=== PATIENT | female | born 1965 | race Caucasian/White ===

== ENCOUNTER 2017-02-05 07:11 | Emergency (ER) | payer OTHER ==
[2017-02-05] MEDS ORDERED: Bicillin L-A 1.2 Mu/2ML SYRINGE IM ONE ×2 (07:23→07:25)
--- NOTE | 2017-02-05 07:28 | ERPHSYRPT ---
- History of Present Illness Time Seen by Provider: 02/05/17 07:15 Source: patient Exam Limitations: no limitations Patient Subjective Stated Complaint: pt reports sorethroat beginning saturday- reports low grade fever-reports nausea but denies diarhea Triage Nursing Assessment: pt pink warm et dry-resp easy et nonlabored-speaking in complete sentences with ease Physician History: patient with CC of sore throat, fever and chills and swollen glands x 2 days; exposed to strep and flu at work; non-productive cough; no SOB; N without emesis ; no symtoms; no difficulty breathing or swallowing other then discomfort; still has tonsils Timing/Duration: day(s) (2-3), gradual onset, worse Cough Quality/Degree: mild, dry cough Possible Cause: occasional episodes Modifying Factors: Improves With: nothing Associated Symptoms: fever, chills, cough, sore throat International travel in last 2 weeks: No Allergies/Adverse Reactions: No Known Drug Allergies Allergy (Unverified 02/05/17 07:23) Home Medications: No Reportable Medications [No Reported Medications] 02/05/17 [History] Hx Tetanus, Diphtheria Vaccination/Date Given: Yes Hx Influenza Vaccination/Date Given: Yes Hx Pneumococcal Vaccination/Date Given: No Immunizations Up to Date: Yes - Review of Systems Constitutional: Fever, Chills Eyes: No Symptoms Ears, Nose, & Throat: Throat Pain, Painful Swallowing, No Ear Pain, No Nose Congestion, No Throat Swelling, No Hoarse Respiratory: Cough, No Cyanosis, No Dyspnea, No Wheezing Cardiac: No Chest Pain, No Edema, No Palpitations Abdominal/Gastrointestinal: Nausea, No Abdominal Pain, No Vomiting, No Diarrhea Genitourinary Symptoms: No Symptoms Musculoskeletal: Arthralgias, No Back Pain, No Neck Pain, No Fall Skin: No Symptoms Neurological: No Symptoms Psychological: No Symptoms Endocrine: No Symptoms Hematologic/Lymphatic: No Symptoms Immunological/Allergic: No Symptoms - Past Medical History Pertinent Past Medical History: No - Past Surgical History Past Surgical History: Yes Female Surgical History: Hysterectomy - Social History Smoking Status: Never smoker Exposure to second hand smoke: No Alcohol Use: Socially Drug Use: none Patient Lives Alone: No Significant Family History: no pertinent family hx - Female History Hx Last Menstrual Period: hysterectomy Hx Now: No - Nursing Vital Signs Nursing Vital Signs: Initial Vital Signs Temperature 98.8 F 02/05/17 07:18 Pulse Rate 87 02/05/17 07:18 Respiratory Rate 20 02/05/17 07:18 Blood Pressure 138/64 02/05/17 07:18 O2 Sat by Pulse Oximetry 96 02/05/17 07:18 Pain Scale Pain Intensity 8 - Physical Exam General Appearance: mild distress, alert Eye Exam: PERRL/EOMI, eyes nml inspection, No photophobia Ears, Nose, Throat Exam: TMs normal, moist mucous membranes, pharyngeal erythema Neck Exam: normal inspection, supple, full range of motion, lymphadenopathy, No meningismus, No JVD, No subcutaneous emphysema, No thyromegaly Respiratory Exam: normal breath sounds, lungs clear, airway intact, No chest tenderness, No respiratory distress, No crackles/rales, No rhonchi, No wheezing Cardiovascular Exam: regular rate/rhythm, normal heart sounds, normal peripheral pulses, capillary refill <2 sec, No murmur, No tachycardia Gastrointestinal/Abdomen Exam: soft, normal bowel sounds, No tenderness, No guarding, No organomegaly Pelvic Exam: deferred Rectal Exam: deferred Back Exam: normal inspection, normal range of motion, No CVA tenderness Extremity Exam: normal inspection, normal range of motion, No eliana's sign, No pedal edema Neurologic Exam: alert, oriented x 3, cooperative, 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, normal mood/affect, nml cerebellar function, nml station & gait, sensation nml Skin Exam: normal color, warm, dry, No rash, No petechiae Lymphatic Exam: adenopathy (left anterior cervical) SpO2 Interpretation: normal SpO2: 97 Oxygen Delivery: Room Air - Course Nursing assessment & vital signs reviewed: Yes Ordered Tests: Active Orders 24 hr Category Date Time Status Pulse Oximetry (ED) STAT Care 02/05/17 07:22 Active Re-Check Vital Signs STAT Care 02/05/17 07:22 Active Medication Summary Discontinued Medications Generic Name Dose Route Start Last Admin Trade Name Freq PRN Reason Stop Dose Admin Penicillin G Benzathine 1.2 mu 02/05/17 07:23 02/05/17 07:27 Bicillin L-A 1.2 Mu/2ml Syringe IM 02/05/17 07:24 1.2 mu STAT ONE Administration Penicillin G Benzathine Confirm 02/05/17 07:25 Bicillin L-A 1.2 Mu/2ml Syringe Administered 02/05/17 07:26 Dose 1.2 mu IM .STK-MED ONE - Progress Progress: re-examined (no change) Air Movement: good Progress Note: 02/05/17 07:29 discussed findings and treatment plan; patient with hx of exposure and NKA and elected to go with treatment via IM Meds; will monitor and recheck 02/05/17 07:36 rechecked and doing fine post IM Meds; instructions given; questions answered Blood Culture(s) Obtained: No Antibiotics given: Yes (Bicillin IM) Counseled pt/family regarding: diagnosis, need for follow-up - Departure Time of Disposition: 07:45 Departure Disposition: Home Clinical Impression: Strep pharyngitis Condition: Stable Critical Care Time: No Referrals: KELLEE WHITAKER [Primary Care Provider] - Instructions: Strep Throat Additional Instructions: rest; no work or school for 48 hours, fluid hydration; chlorospetic gargle, tylenol or motrin prn follow up LMD as needed; RT if problems Forms: Work/School Release Form
[2017-02-05 07:42] VITALS: BP 122/64; PULSE 85; O2SAT 99
== END 2017-02-05 07:41 | disposition home or self-care (01) ==
LOC: ED 07:11
DX: J02.0 Streptococcal pharyngitis (principal)
CPT/HCPCS: 96372; 99284; J0561